=== PATIENT | male | born 1935 | race Caucasian/White ===

== ENCOUNTER 2021-08-30 11:57 | Inpatient (IN) | payer OTHER ==
[~2021-08-30] VITALS: Ht 172.7 cm; Wt 89.2 kg
[~2021-08-30 11:57] MED LIST: ATARAX25 MG PO; BACTRIM DS 8001 TA1 PO; BENADRYL25 MG PO; CHOLESTEROL MED PO; COLCHICINE0.6 MG PO; DIOVAN80 M1; INDOCIN25 MG PO; KENALOG0.1% TP; MEDROL DOSEPAK4 MG PO; PEPCID20 MG PO; PREDNICOT20 MG PO; TAGAMET300 MG PO; ZYLOPRIM100 MG PO
[2021-08-30 12:01] VITALS: BP 126/87
[2021-08-30 13:37] VITALS: BP 138/64
[2021-08-30 13:53] LABS: BASO % 0.5 % (0.0-1.0); EOS # 0.1 10*3/uL (0.0-0.4); EOS % 1.8 % (1.0-4.0); HEMATOCRIT 43.6 % (42.0-52.0); LYMPH # 1.9 10*3/uL (1.3-4.4); LYMPH % 25.9 % (27.0-41.0); MEAN CELL VOLUME 93.4 fl (80.0-94.0); MEAN CORPUSCULAR HGB 30.2 pg (27.0-31.0); MEAN CORPUSCULAR HGB CONC 32.3 g/dl (33.0-37.0); MEAN PLATELET VOLUME 11.2 fl (9.6-12.3); MONO # 0.5 10*3/uL (0.1-1.0); MONO % 6.9 % (3.0-9.0); NEUT # 4.7 10*3/uL (2.3-7.9); NEUT % 63.9 % (47.0-73.0); PLATELET COUNT AUTOMATED 159 10*3/uL (130-400); RED BLOOD COUNT 4.67 10*6/uL (4.50-5.90); WHITE BLOOD COUNT 7.3 10*3/uL (4.8-10.8)
[2021-08-30 14:09] LABS: ALKALINE PHOSPHATASE 198 U/L (45-117); BUN 22 mg/dl (7-24); CHLORIDE 106 mmol/L (98-107); CREATININE 1.13 mg/dL (0.70-1.30); POTASSIUM 4.2 mmol/L (3.5-5.1); SGOT/AST 20 IU/L (3-35); SGPT/ALT 23 U/L (12-78); SODIUM 140 mmol/L (136-145); TOTAL PROTEIN 7.5 gm/dL (6.4-8.2)
[2021-08-30 15:50] VITALS: BP 151/91
[2021-08-30] MEDS ORDERED: VAZALORE81 MG PO (18:09)
[2021-08-30] MEDS ORDERED: ZYLOPRIM100 MG PO (18:10)
[2021-08-30] MEDS ORDERED: BUMETANIDE1 MG PO (18:10)
[2021-08-30] MEDS ORDERED: LIPITOR10 MG PO (18:11)
[2021-08-30] MEDS ORDERED: KLOR-CON M2020 ME1 PO (18:12)
[2021-08-30] MEDS ORDERED: 24 HOUR ALLER15.8 ML NAS (18:14)
[2021-08-30 20:00] VITALS: BP 159/87
[2021-08-31] VITALS: BP 142/68
[2021-08-31 06:05] LABS: BUN 22 mg/dl (7-24); CHLORIDE 108 mmol/L (98-107); CHOLESTEROL 174 mg/dL (<200); CREATININE 0.99 mg/dL (0.70-1.30); FREE T4 1.04 ng/dl (0.76-1.46); LDL CHOLESTEROL 73 mg/dL (9-159); POTASSIUM 4.3 mmol/L (3.5-5.1); SODIUM 138 mmol/L (136-145); TRIGLYCERIDES 62 mg/dl (<150)
[2021-08-31 06:30] LABS: HEMATOCRIT 43.6 % (42.0-52.0); LYMPH # 1.1 10*3/uL (1.3-4.4); LYMPH % 17.1 % (27.0-41.0); MEAN CELL VOLUME 91.2 fl (80.0-94.0); MEAN CORPUSCULAR HGB 30.1 pg (27.0-31.0); MEAN PLATELET VOLUME 11.6 fl (9.6-12.3); MONO # 0.1 10*3/uL (0.1-1.0); MONO % 1.4 % (3.0-9.0); NEUT # 5.1 10*3/uL (2.3-7.9); NEUT % 81.2 % (47.0-73.0); PLATELET COUNT AUTOMATED 168 10*3/uL (130-400); RED BLOOD COUNT 4.78 10*6/uL (4.50-5.90); RED CELL DISTRI WIDTH 15.6 % (0-14.5); WHITE BLOOD COUNT 6.3 10*3/uL (4.8-10.8)
[2021-08-31 07:22] LABS: VITAMIN D, 25-HYDROXY 46.8 ng/mL (30-100)
[2021-08-31 08:00] VITALS: BP 138/78
[2021-08-31 12:00] VITALS: BP 136/79
[2021-08-31 16:00] VITALS: BP 128/70
[2021-08-31 20:00] VITALS: BP 154/83
[2021-09-01] VITALS: BP 145/74
[2021-09-01 08:00] VITALS: BP 154/84
[2021-09-01 12:00] VITALS: BP 145/84
[2021-09-01 16:00] VITALS: BP 126/78
[2021-09-01 20:00] VITALS: BP 148/88
[2021-09-02] VITALS: BP 136/90
[2021-09-02 08:00] VITALS: BP 151/84
[2021-09-02] MEDS ORDERED: PREDNISONE50 MG PO (10:33)
[2021-09-02] MEDS ORDERED: HYDROCODONE-AC1 EAC1 PO (10:33)
[2021-09-02] MEDS ORDERED: CYCLOBENZAPRINE5 M3 PO (10:33)
[2021-09-02 12:00] VITALS: BP 138/72
== END 2021-09-02 13:54 | disposition home or self-care (01) | DRG 556 ==
LOC: ED 11:57 → EDHOLD 14:37 → 5E 14:37
PROVIDERS: Internal Medicine; Registered Nurse; ADMIT Internal Medicine; ATTEND Internal Medicine
DX: M25.559 Pain in unspecified hip (principal); E44.0 Moderate protein-calorie malnutrition; I50.32 Chronic diastolic (congestive) heart failure; M41.86 Other forms of scoliosis, lumbar region; R26.2 Difficulty in walking, not elsewhere classified; R60.0 Localized edema; M10.9 Gout, unspecified; E78.5 Hyperlipidemia, unspecified; Z95.2 Presence of prosthetic heart valve; Z88.8 Allergy status to other drugs, medicaments and biological substances; Z79.899 Other long term (current) drug therapy; Z82.5 Family history of asthma and other chronic lower respiratory diseases; Z68.29 Body mass index [BMI] 29.0-29.9, adult

== ENCOUNTER → 2021-10-13 | Outpatient (CLI) | payer OTHER ==
[~2021-10-13] MED LIST changes: +24 HOUR ALLER15.8 ML NAS; +BUMETANIDE1 MG PO; +CYCLOBENZAPRINE5 M3 PO; +HYDROCODONE-AC1 EAC1 PO; +KLOR-CON M2020 ME1 PO; +LIPITOR10 MG PO; +PREDNISONE50 MG PO; +VAZALORE81 MG PO
== END | disposition home or self-care (01) ==
LOC: MRI 09:00
PROVIDERS: ATTEND Specialist
DX: M51.26 Other intervertebral disc displacement, lumbar region (principal); M48.061 Spinal stenosis, lumbar region without neurogenic claudication

== ENCOUNTER 2023-07-14 00:45 | Inpatient (IN) | payer OTHER ==
[~2023-07-14] VITALS: Ht 175.3 cm; Wt 97.3 kg
[2023-07-14] VITALS (9 sets, daily range): BP systolic 142–204; BP diastolic 53–86
[2023-07-14] MEDS ORDERED: SODIUM CHLORIDE 0.9% 1,000 ML IV ONE (01:05)
[2023-07-14] MEDS ORDERED: Ketorolac Tromethamine 15 MG/ML VIAL IV ONE (01:05)
[2023-07-14] MEDS ORDERED: IOHEXOL 300 MG/ML 100 ML VIAL IV ONE (01:10)
[2023-07-14 01:22] LABS: BASO # 0.1 10*3/uL (0.0-0.1); BASO % 0.7 % (0.0-1.0); EOS # 0.1 10*3/uL (0.0-0.4); EOS % 0.7 % (1.0-4.0); HEMATOCRIT 44.6 % (42.0-52.0); LYMPH # 1.4 10*3/uL (1.3-4.4); LYMPH % 15.7 % (27.0-41.0); MEAN CELL VOLUME 97.6 fl (80.0-94.0); MEAN CORPUSCULAR HGB 30.6 pg (27.0-31.0); MEAN CORPUSCULAR HGB CONC 31.4 g/dl (33.0-37.0); MEAN PLATELET VOLUME 10.7 fl (9.6-12.3); MONO # 0.4 10*3/uL (0.1-1.0); MONO % 4.7 % (3.0-9.0); NEUT # 6.9 10*3/uL (2.3-7.9); PLATELET COUNT AUTOMATED 182 10*3/uL (130-400); RED BLOOD COUNT 4.57 10*6/uL (4.50-5.90); RED CELL DISTRI WIDTH 13.2 % (0-14.5); WHITE BLOOD COUNT 8.9 10*3/uL (4.8-10.8)
[2023-07-14 01:41] LABS: POTASSIUM 3.6 mmol/L (3.4-5.1)
[2023-07-14] MEDS ORDERED: FUROSEMIDE 40 MG/4 ML VIAL IV ONE (03:10)
[2023-07-14] MEDS ORDERED: Ceftriaxone Sodium 1 GM/10 ML SYR IV ONE (03:10)
[2023-07-14] MEDS ORDERED: AZITHROMYCIN 250 ML IV ONE (03:10)
[2023-07-14] MEDS ORDERED: BISACODYL 5 MG TAB PO PRN (03:30)
[2023-07-14] MEDS ORDERED: ACETAMINOPHEN 325 MG TAB PO PRN (03:30)
[2023-07-14] MEDS ORDERED: ACETAMINOPHEN 650 MG SUPP R PRN (03:30)
[2023-07-14] MEDS ORDERED: MORPHINE Sulfate 2 MG/ML SYR IV PRN (03:30)
[2023-07-14] MEDS ORDERED: Magnesium Hydroxide 30 ML UDC PO PRN (03:30)
[2023-07-14] MEDS ORDERED: Ondansetron Hydrochloride 4 MG/2 ML VIAL IV PRN (03:30)
[2023-07-14] MEDS ORDERED: Acetaminophen/Hydrocodone 5 MG/325 MG TABLET PO PRN (03:30)
[2023-07-14] MEDS ORDERED: ASPIRIN 325 MG TAB PO ONE (06:15)
[2023-07-14 06:53] LABS: BASO % 0.4 % (0.0-1.0); EOS % 0.1 % (1.0-4.0); HEMATOCRIT 41.8 % (42.0-52.0); LYMPH # 1.3 10*3/uL (1.3-4.4); LYMPH % 12.7 % (27.0-41.0); MEAN CELL VOLUME 98.8 fl (80.0-94.0); MEAN CORPUSCULAR HGB CONC 31.3 g/dl (33.0-37.0); MEAN PLATELET VOLUME 10.5 fl (9.6-12.3); MONO # 0.8 10*3/uL (0.1-1.0); MONO % 7.5 % (3.0-9.0); NEUT # 8.1 10*3/uL (2.3-7.9); NEUT % 78.9 % (47.0-73.0); PLATELET COUNT AUTOMATED 161 10*3/uL (130-400); RED BLOOD COUNT 4.23 10*6/uL (4.50-5.90); RED CELL DISTRI WIDTH 13.2 % (0-14.5); WHITE BLOOD COUNT 10.2 10*3/uL (4.8-10.8)
[2023-07-14 07:58] LABS: ALKALINE PHOSPHATASE 137 U/L (46-116); BUN 28 mg/dl (9-23); CHLORIDE 103 mmol/L (98-107); CHOLESTEROL 162 mg/dL (<200); LDL CHOLESTEROL 77 mg/dL (9-159); POTASSIUM 4.2 mmol/L (3.4-5.1); TOTAL PROTEIN 7.4 gm/dL (6.0-8.0); TRIGLYCERIDES 72 mg/dl (<150)
[2023-07-14 08:01] LABS: SGPT/ALT < 7 U/L (5-49)
[2023-07-14] MEDS ORDERED: Ceftriaxone Sodium 1 GM in SYRINGE INFUSION 10 ML IV SCH (10:00)
[2023-07-14] MEDS ORDERED: ATORVASTATIN CALCIUM 80 MG TAB PO SCH (10:00)
[2023-07-14] MEDS ORDERED: Enoxaparin Sodium 40 MG/0.4 ML SYR SC SCH (10:00)
[2023-07-14] MEDS ORDERED: METOPROLOL SUCCINATE XR 25 MG TAB PO SCH (10:00)
[2023-07-14] MEDS ORDERED: BUMETANIDE 1 MG/4 ML VIAL IV SCH ×2 (10:00)
[2023-07-14] MEDS ORDERED: Albuterol Sulfate 2.5 MG/3 ML VIAL NEB SCH (18:50)
[2023-07-14] MEDS ORDERED: VITAMIN D325 MCG PO (19:05)
[2023-07-14] MEDS ORDERED: VITAMIN B-12250 MCG PO (19:06)
[2023-07-14] MEDS ORDERED: ENTRESTO 49 MG1 EACH PO (19:07)
[2023-07-14] MEDS ORDERED: Cefepime Hydrochloride 2 GM,IV 1 EA in SODIUM CHLORIDE 0.9% 50 ML IV SCH (20:00)
[2023-07-14] MEDS ORDERED: AZITHROMYCIN 250 ML IV SCH (22:00)
[2023-07-14] MEDS ORDERED: Doxycycline Hyclate 100 MG,IV 1 EA in SODIUM CHLORIDE 0.9% 250 ML IV SCH (22:00)
[2023-07-14] MEDS ORDERED: CARVEDILOL 6.25 MG TAB PO SCH (22:00)
[2023-07-15] VITALS: BP 145/54
[2023-07-15 06:11] LABS: BASO # 0.1 10*3/uL (0.0-0.1); BASO % 0.5 % (0.0-1.0); EOS # 0.2 10*3/uL (0.0-0.4); EOS % 2.4 % (1.0-4.0); LYMPH # 1.3 10*3/uL (1.3-4.4); LYMPH % 14.5 % (27.0-41.0); MEAN CELL VOLUME 98.1 fl (80.0-94.0); MEAN CORPUSCULAR HGB CONC 31.6 g/dl (33.0-37.0); MEAN PLATELET VOLUME 10.9 fl (9.6-12.3); MONO # 0.9 10*3/uL (0.1-1.0); MONO % 9.7 % (3.0-9.0); NEUT # 6.7 10*3/uL (2.3-7.9); NEUT % 72.6 % (47.0-73.0); PLATELET COUNT AUTOMATED 147 10*3/uL (130-400); RED BLOOD COUNT 3.77 10*6/uL (4.50-5.90); RED CELL DISTRI WIDTH 13.3 % (0-14.5); WHITE BLOOD COUNT 9.2 10*3/uL (4.8-10.8)
[2023-07-15 06:58] LABS: BUN 26 mg/dl (9-23); CHLORIDE 104 mmol/L (98-107); POTASSIUM 3.7 mmol/L (3.4-5.1)
[2023-07-15 08:00] VITALS: BP 160/72
[2023-07-15] MEDS ORDERED: BUMETANIDE 0.5 MG TAB PO SCH (10:00)
[2023-07-15] MEDS ORDERED: BUMETANIDE 1 MG TAB PO SCH (10:00)
[2023-07-15 12:00] VITALS: BP 153/53
[2023-07-15] MEDS ORDERED: APRESOLINE25 MG PO (12:59)
[2023-07-15] MEDS ORDERED: CARVEDILOL6.25 MG PO (12:59)
[2023-07-15] MEDS ORDERED: ATORVASTATIN CA80 M1 PO (12:59)
[2023-07-15] MEDS ORDERED: ISORDIL10 M1 PO (12:59)
[2023-07-15] MEDS ORDERED: VIBRA-TAB100 MG PO (12:59)
[2023-07-15] MEDS ORDERED: hydrALAZINE hydrochloride 25 MG TAB PO SCH (14:00)
[2023-07-15] MEDS ORDERED: ISOSORBIDE DINITRATE 10 MG TAB PO SCH (14:00)
== END 2023-07-15 15:05 | disposition home or self-care (01) | DRG 193 ==
LOC: ED 00:45 → EDHOLD 03:18 → 4E 20:04
PROVIDERS: Internal Medicine; Student in an Organized Health Care Education/Training Program; ADMIT Student in an Organized Health Care Education/Training Program; ATTEND Student in an Organized Health Care Education/Training Program
DX: J18.9 Pneumonia, unspecified organism (principal); I50.23 Acute on chronic systolic (congestive) heart failure; N17.0 Acute kidney failure with tubular necrosis; I24.89 Other forms of acute ischemic heart disease; J91.8 Pleural effusion in other conditions classified elsewhere; I42.8 Other cardiomyopathies; R73.9 Hyperglycemia, unspecified; E78.5 Hyperlipidemia, unspecified; N40.1 Benign prostatic hyperplasia with lower urinary tract symptoms; E66.09 Other obesity due to excess calories; I11.0 Hypertensive heart disease with heart failure; M10.9 Gout, unspecified; F10.10 Alcohol abuse, uncomplicated; I08.1 Rheumatic disorders of both mitral and tricuspid valves; I27.20 Pulmonary hypertension, unspecified; Z82.5 Family history of asthma and other chronic lower respiratory diseases; Z79.1 Long term (current) use of non-steroidal anti-inflammatories (NSAID); Z79.899 Other long term (current) drug therapy; Z87.891 Personal history of nicotine dependence; Z79.82 Long term (current) use of aspirin; Z68.31 Body mass index [BMI] 31.0-31.9, adult

== ENCOUNTER → 2023-09-13 | Outpatient (CLI) | payer OTHER ==
[~2023-09-13] MED LIST changes: +APRESOLINE25 MG PO; +ATORVASTATIN CA80 M1 PO; +CARVEDILOL6.25 MG PO; +ENTRESTO 49 MG1 EACH PO; +IOHEXOL 300 MG/ML 100 ML VIAL IV ONE; +ISORDIL10 M1 PO; +VIBRA-TAB100 MG PO; +VITAMIN B-12250 MCG PO; +VITAMIN D325 MCG PO
== END | disposition home or self-care (01) ==
LOC: CT 02:06
PROVIDERS: ATTEND Internal Medicine Critical Care Medicine
DX: J90 Pleural effusion, not elsewhere classified (principal); I51.7 Cardiomegaly; J98.11 Atelectasis; J98.4 Other disorders of lung

== ENCOUNTER → 2023-10-11 | Outpatient (CLI) | payer OTHER ==
[2023-10-11] VITALS (7 sets, daily range): BP systolic 168–207; BP diastolic 41–95
[~2023-10-11] MED LIST changes: -IOHEXOL 300 MG/ML 100 ML VIAL IV ONE; +Lidocaine Hydrochloride 0 ML IV ONE; +Lidocaine Hydrochloride 5 ML AMP ONE; +SODIUM BICARBONATE 4.2% 5 ML VIAL ONE
[2023-10-11 10:36] LABS: ACT PARTIAL THROMBO TIME 30.5 SECONDS (20.0-32.1)
[2023-10-11 13:46] LABS: BF LYMPHOCYTES 94 %; BF MACROPHAGES 4 %; BF NEUTROPHILS 2 %
[2023-10-12 11:08] LABS: ACID FAST SPEC PROCESSING Direct Inoculation (.)
== END | disposition home or self-care (01) ==
LOC: EDSTATUS 11:00
PROVIDERS: ATTEND Internal Medicine Critical Care Medicine
DX: J90 Pleural effusion, not elsewhere classified (principal); R91.8 Other nonspecific abnormal finding of lung field; J84.10 Pulmonary fibrosis, unspecified; Z95.2 Presence of prosthetic heart valve

== ENCOUNTER → 2024-03-21 | Outpatient (CLI) | payer OTHER ==
[~2024-03-21] MED LIST changes: -Lidocaine Hydrochloride 0 ML IV ONE; -Lidocaine Hydrochloride 5 ML AMP ONE; -SODIUM BICARBONATE 4.2% 5 ML VIAL ONE
== END | disposition home or self-care (01) ==
LOC: CT 03-13 11:00
PROVIDERS: ATTEND Internal Medicine Critical Care Medicine
DX: I25.10 Atherosclerotic heart disease of native coronary artery without angina pectoris (principal); R06.02 Shortness of breath; J44.9 Chronic obstructive pulmonary disease, unspecified; J94.8 Other specified pleural conditions; Z87.891 Personal history of nicotine dependence; Z77.090 Contact with and (suspected) exposure to asbestos